=== PATIENT | female | born 1965 | race African-American/Black ===

== ENCOUNTER 2021-04-02 06:35 | Emergency (ER) | payer SELFPAY ==
[~2021-04-02] VITALS: Ht 170.2 cm; Wt 68.1 kg
[2021-04-02] MEDS ORDERED: ACETAMINOPHEN 325MG TABLET PO ONE (07:15)
[2021-04-02 07:34] VITALS: BP 195/92
[2021-04-02] MEDS ORDERED: ACET-2708 MT (08:25)
== END 2021-04-02 08:37 | disposition home or self-care (01) ==
LOC: ER 06:35
DX: S93.692A Other sprain of left foot, initial encounter (principal); Y08.89XA Assault by other specified means, initial encounter; Y93.89 Activity, other specified; Y92.89 Other specified places as the place of occurrence of the external cause; Y99.8 Other external cause status; I10 Essential (primary) hypertension; E11.9 Type 2 diabetes mellitus without complications; F17.290 Nicotine dependence, other tobacco product, uncomplicated
CPT/HCPCS: 73630; 99283

== ENCOUNTER 2022-07-07 23:53 | Emergency (ER) | payer SELFPAY ==
[~2022-07-07] VITALS: Ht 170.2 cm; Wt 75.0 kg
[~2022-07-07 23:53] MED LIST: ACET-2708 MT
[2022-07-08] VITALS: BP 216/92
== END 2022-07-08 01:30 | disposition left against medical advice (07) ==
LOC: ER 23:53
DX: Z53.21 Procedure and treatment not carried out due to patient leaving prior to being seen by health care provider (principal)

== ENCOUNTER 2022-09-14 18:40 | Inpatient (IN) | payer BC ==
[~2022-09-14] VITALS: Ht 170.2 cm; Wt 67.1 kg
[2022-09-14] MEDS ORDERED: ONDANSETRON HCL 4MG/2ML INJ IV STA ×2 (18:56→21:51)
[2022-09-14] MEDS ORDERED: SODIUM CHLORIDE 0.9% 1,000 ML IV ONE ×2 (19:00→22:00)
[2022-09-14 20:46] LABS: BASOPHILS % 0.5 % (0.0-2.0); EOSINOPHILS % 0.6 % (0.0-5.0); HEMOGLOBIN. 14.6 g/dL (12.0-16.0); LYMPHOCYTES % 21.8 % (20.0-50.0); MEAN CORPUSCULAR HEMOGLOBIN 30.3 pg (28.0-32.0); MEAN CORPUSCULAR VOLUME 93.4 fL (81.0-99.0); MEAN PLATELET VOLUME 9.6 fl (7.4-10.4); MONOCYTES % 6.6 % (2.0-8.0); NEUTROPHILS % 70.5 % (40.0-76.0); PLATELET 337 x1000/uL (130-400); RED BLOOD CELL COUNT 4.82 mill/uL (4.2-5.4); RED CELL DISTRIBUTION WIDTH 13.9 % (11.6-14.6)
[2022-09-14 20:55] LABS: CHLORIDE 103 mEq/L (98-107)
[2022-09-14 21:02] LABS: ETHANOL BLOOD < 10 mg/dL
[2022-09-14 21:14] LABS: CLARITY URINE CLEAR (CLEAR); COLOR URINE YELLOW (YELLOW); KETONES URINE 2+ (NEGATIVE); LEUKOCYTE ESTERASE URINE NEGATIVE (NEGATIVE); NITRITE URINE NEGATIVE (NEGATIVE); OCCULT BLOOD URINE NEGATIVE (NEGATIVE); PH URINE 5.5 (4.5-8.0); PROTEIN URINE NEGATIVE (NEGATIVE); SPECIFIC GRAVITY URINE 1.021 (1.005-1.030); UROBILINOGEN URINE 0.2 E.U./dL (0.2-1.0)
[2022-09-14 21:34] LABS: *AMPHETAMINES SCREEN URINE NEGATIVE (NEGATIVE); *BARBITURATES SCREEN URINE NEGATIVE (NEGATIVE); *BENZODIAZEPINES SCREEN URINE NEGATIVE (NEGATIVE); *COCAINE SCREEN URINE NEGATIVE (NEGATIVE); CANNABINOID URINE SCREEN PRESUMTIVE POSITIVE (NEGATIVE); METHADONE URINE SCREEN NEGATIVE (NEGATIVE); OPIATES URINE SCREEN NEGATIVE (NEGATIVE); PHENCYCLIDINE URINE SCREEN NEGATIVE (NEGATIVE)
[2022-09-14] MEDS ORDERED: INSULIN REGULAR (HUMULIN R) 300UNITS/3ML VIAL SUBCUT ONE (22:00)
[2022-09-14] MEDS ORDERED: ACETAMINOPHEN 325MG TABLET PO PRN ×2 (23:30)
[2022-09-14] MEDS ORDERED: CLONIDINE 0.1MG TABLET PO PRN (23:30)
[2022-09-14] MEDS ORDERED: DEXTROSE 50% WATER 50ML SYRINGE IV PRN (23:30)
[2022-09-14] MEDS ORDERED: IPRATROPIUM/ALBUTEROL 0.5-3(2.5)MG/3ML NEB NEB PRN (23:30)
[2022-09-14] MEDS ORDERED: HYDRALAZINE 20MG/ML VIAL IV PRN (23:30)
[2022-09-15] MEDS ORDERED: INSULIN REGULAR (HUMULIN R) 300UNITS/3ML VIAL IV NR (01:45)
[2022-09-15] MEDS: SODIUM CHLORIDE 0.45% 1,000 ML IV SCH ×2 (02:50→08:41)
[2022-09-15 03:55] VITALS: BP 201/169
[2022-09-15] MEDS ORDERED: PROPRANOLOL HCL 1MG/ML AMPULE IV NR (06:30)
[2022-09-15] MEDS: BLOOD SUGAR DIAGNOSTIC STRIP TEST SCH ×4 (06:35→21:35)
[2022-09-15] MEDS: METHIMAZOLE 5MG TABLET PO SCH ×2 (06:35→16:02)
[2022-09-15] MEDS: INSULIN LISPRO 100 UNITS/ML SUBCUT SCH ×4 (06:37→21:33)
[2022-09-15] MEDS: METFORMIN HCL 500MG TABLET PO SCH ×2 (07:50→18:15)
[2022-09-15 08:00] VITALS: BP 182/84
[2022-09-15] MEDS: PANTOPRAZOLE SODIUM 40 MG/VIAL IV SCH (08:33)
[2022-09-15] MEDS: ENOXAPARIN 40MG/0.4ML SYR SUBCUT SCH (08:34)
[2022-09-15] MEDS ORDERED: AMLODIPINE 5MG TABLET PO SCH ×2 (09:00→10:15)
[2022-09-15] MEDS ORDERED: FUROSEMIDE 20MG TABLET PO SCH (10:15)
[2022-09-15 10:25] LABS: BASOPHILS % 0.2 % (0.0-2.0); HEMOGLOBIN. 13.2 g/dL (12.0-16.0); LYMPHOCYTES % 11.8 % (20.0-50.0); MEAN CORPUSCULAR HEMOGLOBIN 30.3 pg (28.0-32.0); MEAN CORPUSCULAR VOLUME 91.7 fL (81.0-99.0); MEAN PLATELET VOLUME 9.7 fl (7.4-10.4); MONOCYTES % 4.8 % (2.0-8.0); NEUTROPHILS % 83.2 % (40.0-76.0); PLATELET 391 x1000/uL (130-400); RED BLOOD CELL COUNT 4.36 mill/uL (4.2-5.4); RED CELL DISTRIBUTION WIDTH 13.8 % (11.6-14.6)
[2022-09-15] MEDS ORDERED: SODIUM CHLORIDE 0.9% 1,000 ML IV SCH (10:30)
[2022-09-15] MEDS: ONDANSETRON HCL 4MG/2ML INJ IV PRN (10:38)
[2022-09-15 10:40] LABS: CHLORIDE 109 mEq/L (98-107)
[2022-09-15 10:43] LABS: CHLORIDE 109 mEq/L (98-107)
[2022-09-15 10:57] LABS: HDL CHOLESTEROL 71 mg/dL (40-59); LDL CHOLESTEROL 92 mg/dL (5-100); T4 FREE 2.23 ng/dL (0.76-1.46)
[2022-09-15 12:00] VITALS: BP 165/61
[2022-09-15 16:00] VITALS: BP 152/131
[2022-09-15 17:49] LABS: CHLORIDE 104 mEq/L (98-107)
[2022-09-15] MEDS: FUROSEMIDE 20MG TABLET PO SCH (18:16)
[2022-09-15] MEDS ORDERED: PNEUMOCOCCAL 23-VAL P-SAC VAC 0.5 ML IM ONE (21:00)
[2022-09-15] MEDS: INSULIN GLARGINE 100 UNITS/ML SUBCUT SCH (21:34)
[2022-09-15] MEDS: METHIMAZOLE 10MG TABLET PO SCH (21:35)
[2022-09-15] MEDS: AMLODIPINE 5MG TABLET PO SCH (21:40)
[2022-09-15 23:21] VITALS: BP 169/78
[2022-09-16 04:00] VITALS: BP 166/76
[2022-09-16] MEDS: AMLODIPINE 5MG TABLET PO SCH ×2 (06:28→20:47)
[2022-09-16] MEDS: METHIMAZOLE 10MG TABLET PO SCH ×2 (06:29→15:02)
[2022-09-16] MEDS: BLOOD SUGAR DIAGNOSTIC STRIP TEST SCH ×4 (06:50→20:45)
[2022-09-16] MEDS: METFORMIN HCL 500MG TABLET PO SCH ×3 (07:20→17:19)
[2022-09-16] MEDS: FUROSEMIDE 20MG TABLET PO SCH ×2 (07:49→17:28)
[2022-09-16 08:00] VITALS: BP 154/84
[2022-09-16] MEDS: INSULIN LISPRO 100 UNITS/ML SUBCUT SCH ×4 (08:02→20:45)
[2022-09-16 08:34] LABS: BASOPHILS % 0.7 % (0.0-2.0); EOSINOPHILS % 0.1 % (0.0-5.0); HEMATOCRIT. 41.9 % (36.0-48.0); HEMOGLOBIN. 13.6 g/dL (12.0-16.0); LYMPHOCYTES % 14.3 % (20.0-50.0); MEAN CORPUSCULAR HEMOGLOBIN 30.5 pg (28.0-32.0); MEAN CORPUSCULAR VOLUME 93.8 fL (81.0-99.0); MEAN PLATELET VOLUME 9.6 fl (7.4-10.4); MONOCYTES % 5.8 % (2.0-8.0); NEUTROPHILS % 79.1 % (40.0-76.0); PLATELET 380 x1000/uL (130-400); RED BLOOD CELL COUNT 4.47 mill/uL (4.2-5.4); RED CELL DISTRIBUTION WIDTH 14.1 % (11.6-14.6)
[2022-09-16 08:43] LABS: CHLORIDE 105 mEq/L (98-107)
[2022-09-16 08:48] LABS: PHOSPHORUS 3.1 mg/dL (2.5-4.9)
[2022-09-16 09:13] LABS: BETA HYDROXYBUTYRATE 0.3 mMol/L (0.0-0.3)
[2022-09-16] MEDS: PANTOPRAZOLE SODIUM 40 MG/VIAL IV SCH (09:32)
[2022-09-16] MEDS: ENOXAPARIN 40MG/0.4ML SYR SUBCUT SCH (09:33)
[2022-09-16 12:16] VITALS: BP 183/87
[2022-09-16] MEDS: HYDRALAZINE 20MG/ML VIAL IV PRN (12:36)
[2022-09-16] MEDS ORDERED: METOPROLOL TARTRATE 5MG/5ML VIAL IV PRN ×2 (13:00)
[2022-09-16] MEDS: ONDANSETRON HCL 4MG/2ML INJ IV PRN (13:10)
[2022-09-16] MEDS ORDERED: ONDANSETRON HCL 4MG/2ML INJ IV PRN (14:15)
[2022-09-16] MEDS: HYDRALAZINE HCL 50MG TABLET PO SCH ×2 (15:02→22:06)
[2022-09-16 16:00] VITALS: BP 153/83
[2022-09-16] MEDS: METOCLOPRAMIDE HCL 10MG/2ML VIAL IV SCH ×2 (17:28→23:56)
[2022-09-16 20:00] VITALS: BP 112/65
[2022-09-16] MEDS ORDERED: PROPRANOLOL HCL 10MG TABLET PO SCH (21:00)
[2022-09-16] MEDS ORDERED: METHIMAZOLE 10MG TABLET PO SCH (22:00)
[2022-09-16] MEDS: INSULIN GLARGINE 100 UNITS/ML SUBCUT SCH (22:01)
[2022-09-17] VITALS (7 sets, daily range): BP systolic 134–171; BP diastolic 72–83
[2022-09-17] MEDS: HYDRALAZINE 20MG/ML VIAL IV PRN (04:58)
[2022-09-17] MEDS: METOCLOPRAMIDE HCL 10MG/2ML VIAL IV SCH ×3 (06:09→17:34)
[2022-09-17] MEDS: BLOOD SUGAR DIAGNOSTIC STRIP TEST SCH ×4 (06:11→21:13)
[2022-09-17] MEDS: HYDRALAZINE HCL 50MG TABLET PO SCH ×3 (06:14→22:13)
[2022-09-17] MEDS: INSULIN LISPRO 100 UNITS/ML SUBCUT SCH ×4 (06:15→21:29)
[2022-09-17 07:34] LABS: BASOPHILS % 0.8 % (0.0-2.0); EOSINOPHILS % 0.2 % (0.0-5.0); HEMATOCRIT. 44.5 % (36.0-48.0); HEMOGLOBIN. 14.6 g/dL (12.0-16.0); LYMPHOCYTES % 21.6 % (20.0-50.0); MEAN CORPUSCULAR HEMOGLOBIN 30.3 pg (28.0-32.0); MEAN CORPUSCULAR VOLUME 92.1 fL (81.0-99.0); MEAN PLATELET VOLUME 10.2 fl (7.4-10.4); MONOCYTES % 8.5 % (2.0-8.0); NEUTROPHILS % 68.9 % (40.0-76.0); PLATELET 414 x1000/uL (130-400); RED BLOOD CELL COUNT 4.83 mill/uL (4.2-5.4); RED CELL DISTRIBUTION WIDTH 14.1 % (11.6-14.6)
[2022-09-17] MEDS: METOPROLOL TARTRATE 25MG TABLET PO SCH ×2 (08:37→21:23)
[2022-09-17] MEDS: ENOXAPARIN 40MG/0.4ML SYR SUBCUT SCH (08:37)
[2022-09-17] MEDS: METHIMAZOLE 10MG TABLET PO SCH ×2 (15:17→22:13)
[2022-09-17] MEDS ORDERED: METH-372 PO (21:45)
[2022-09-17] MEDS ORDERED: METO-396 PO (21:47)
[2022-09-17] MEDS: INSULIN GLARGINE 100 UNITS/ML SUBCUT SCH (22:15)
[2022-09-18] VITALS: BP 168/74
[2022-09-18] MEDS: METOCLOPRAMIDE HCL 10MG/2ML VIAL IV SCH ×3 (00:42→13:04)
[2022-09-18] MEDS ORDERED: BLOOD SUGAR DIAGNOSTIC STRIP TEST SCH (03:00)
[2022-09-18 04:06] VITALS: BP 166/82
[2022-09-18 06:12] LABS: EOSINOPHILS % 0.5 % (0.0-5.0); HEMATOCRIT. 41.1 % (36.0-48.0); HEMOGLOBIN. 13.7 g/dL (12.0-16.0); LYMPHOCYTES % 20.6 % (20.0-50.0); MEAN CORPUSCULAR HEMOGLOBIN 30.7 pg (28.0-32.0); MEAN CORPUSCULAR VOLUME 92.3 fL (81.0-99.0); MEAN PLATELET VOLUME 9.8 fl (7.4-10.4); MONOCYTES % 6.9 % (2.0-8.0); PLATELET 353 x1000/uL (130-400); RED BLOOD CELL COUNT 4.46 mill/uL (4.2-5.4); RED CELL DISTRIBUTION WIDTH 13.8 % (11.6-14.6)
[2022-09-18] MEDS: BLOOD SUGAR DIAGNOSTIC STRIP TEST SCH ×2 (06:13→11:50)
[2022-09-18] MEDS: METHIMAZOLE 10MG TABLET PO SCH ×2 (06:27→15:48)
[2022-09-18 06:28] LABS: CHLORIDE 101 mEq/L (98-107)
[2022-09-18] MEDS: HYDRALAZINE HCL 50MG TABLET PO SCH ×2 (06:29→15:45)
[2022-09-18] MEDS: INSULIN LISPRO 100 UNITS/ML SUBCUT SCH ×2 (06:47→13:04)
[2022-09-18] MEDS: INSULIN LISPRO (LOW DOSE) 100 UNITS/ML SUBCUT SCH ×2 (06:48→13:04)
[2022-09-18] MEDS ORDERED: INSULIN LISPRO 100 UNITS/ML SUBCUT SCH (06:50)
[2022-09-18 07:03] LABS: T4 FREE 2.21 ng/dL (0.76-1.46)
[2022-09-18 08:00] VITALS: BP 137/69
[2022-09-18] MEDS: METOPROLOL TARTRATE 25MG TABLET PO SCH (09:32)
[2022-09-18] MEDS: ENOXAPARIN 40MG/0.4ML SYR SUBCUT SCH (09:32)
[2022-09-18 12:58] VITALS: BP 179/84
[2022-09-18] MEDS ORDERED: METHIMAZOLE 5MG TABLET PO NR (14:45)
[2022-09-18 15:09] VITALS: BP 137/69
[2022-09-18] MEDS ORDERED: INSULIN GLARGINE 100 UNITS/ML SUBCUT SCH (22:00)
== END 2022-09-18 18:06 | disposition home or self-care (01) | DRG 304 ==
LOC: ER 18:40 → 3WST 22:14 → EDBEDREQ 22:16 → EDBEDREQSVC 09-15 03:11 → ENRESERV 09-15 03:33
PROVIDERS: ADMIT Internal Medicine Nephrology; ATTEND Internal Medicine Nephrology
DX: I16.0 Hypertensive urgency (principal); E11.10 Type 2 diabetes mellitus with ketoacidosis without coma; E11.43 Type 2 diabetes mellitus with diabetic autonomic (poly)neuropathy; E11.319 Type 2 diabetes mellitus with unspecified diabetic retinopathy without macular edema; E11.649 Type 2 diabetes mellitus with hypoglycemia without coma; D72.829 Elevated white blood cell count, unspecified; K31.84 Gastroparesis; E06.3 Autoimmune thyroiditis; F41.9 Anxiety disorder, unspecified; R11.14 Bilious vomiting; E05.00 Thyrotoxicosis with diffuse goiter without thyrotoxic crisis or storm; I10 Essential (primary) hypertension; E04.9 Nontoxic goiter, unspecified; Z96.41 Presence of insulin pump (external) (internal); Z79.4 Long term (current) use of insulin; Z80.3 Family history of malignant neoplasm of breast; Z82.49 Family history of ischemic heart disease and other diseases of the circulatory system; Z91.199 Patient's noncompliance with other medical treatment and regimen due to unspecified reason
CPT/HCPCS: 36415; 71045; 76536; 76700; 78265; 80048; 80053; 80061; 80076; 80305; 80320; 81003; 82010; 82150; 82533; 82962; 83036; 83519; 83520; 83735; 84100; 84439; 84443; 84480; 84481; 84484; 84681; 85025; 86376; 90732; 93005; 99285; C9113; J0360; J1650; J1800; J1815; J2405; J2765; J3490; J7030; G0480

== ENCOUNTER 2023-10-24 01:07 | Emergency (ER) | payer BC ==
[~2023-10-24] VITALS: Ht 170.2 cm; Wt 83.0 kg
[~2023-10-24 01:07] MED LIST changes: +METH-372 PO; +METO-396 PO
[2023-10-24 01:22] VITALS: BP 202/108; TEMP 98.8; O2SAT 99
[2023-10-24 01:23] VITALS: PULSE 79
[2023-10-24] MEDS ORDERED: INSULIN REGULAR (HUMULIN R) 300UNITS/3ML VIAL SUBCUT ONE (02:30)
[2023-10-24] MEDS ORDERED: SODIUM CHLORIDE 0.9% 1,000 ML IV ONE (02:30)
== END 2023-10-24 02:59 | disposition left against medical advice (07) ==
LOC: ER 01:07
DX: E11.65 Type 2 diabetes mellitus with hyperglycemia (principal); I10 Essential (primary) hypertension; Z76.0 Encounter for issue of repeat prescription; Z98.890 Other specified postprocedural states
CPT/HCPCS: 99281; J7030

== ENCOUNTER 2025-01-20 00:04 | Emergency (ER) | payer BC ==
[~2025-01-20] VITALS: Ht 170.2 cm; Wt 69.0 kg
[2025-01-20 00:40] VITALS: TEMP 37.1; O2SAT 100
[2025-01-20 01:42] LABS: PLATELET 395 x1000/uL (130-400); RED BLOOD CELL COUNT 4.97 mill/uL (4.2-5.4); RED CELL DISTRIBUTION WIDTH 14.0 % (11.6-14.6)
[2025-01-20 01:54] LABS: CREATININE 1.0 mg/dL (0.6-1.0)
[2025-01-20 01:55] LABS: UREA NITROGEN BLOOD 11 mg/dL (9-23)
[2025-01-20] MEDS: KETOROLAC 15MG/ML VIAL IM ONE (02:05)
[2025-01-20 03:36] LABS: CLARITY URINE CLEAR (CLEAR); COLOR URINE DARK YELLOW (YELLOW); GLUCOSE URINE 1+ (NEGATIVE); KETONES URINE 1+ (NEGATIVE); LEUKOCYTE ESTERASE URINE 1+ (NEGATIVE); NITRITE URINE NEGATIVE (NEGATIVE); OCCULT BLOOD URINE NEGATIVE (NEGATIVE); PH URINE 5.0 (4.5-8.0); PROTEIN URINE 1+ (NEGATIVE); SPECIFIC GRAVITY URINE 1.031 (1.005-1.030); UROBILINOGEN URINE 1.0 E.U./dL (0.2-1.0)
[2025-01-20 04:26] LABS: BACTERIA URINE 1+; RBC URINE NONE SEEN /hpf (0-2); SQUAMOUS EPITHELIAL CELL URINE 3+ /lpf (RARE/1+)
[2025-01-20] MEDS ORDERED: CEPH500T MT (04:43)
[2025-01-20] MEDS ORDERED: NAPR-1176 MT (04:44)
[2025-01-20 05:22] VITALS: BP 165/90; PULSE 71; RESP 16; O2SAT 100
== END 2025-01-20 05:22 | disposition home or self-care (01) ==
LOC: ER 00:04
DX: N39.0 Urinary tract infection, site not specified (principal); E11.65 Type 2 diabetes mellitus with hyperglycemia; I10 Essential (primary) hypertension; Z79.1 Long term (current) use of non-steroidal anti-inflammatories (NSAID); Z79.899 Other long term (current) drug therapy
CPT/HCPCS: 99285; 74176; 80048; 81003; 85027; 87086; 36415; 96372; J1885